=== PATIENT | female | born 1990 | race Caucasian/White ===

== ENCOUNTER 2018-04-20 15:42 | Emergency (ER) | payer BC ==
[~2018-04-20] VITALS: Ht 160 cm; Wt 80.7 kg
[2018-04-20 16:11] LABS: BASOPHILS # (AUTO) 0.1 X10'3 (0-0.2); BASOPHILS % (AUTO) 0.6 % (0-1); EOSINOPHILS # (AUTO) 0.1 X10'3 (0-0.9); EOSINOPHILS % (AUTO) 0.8 % (0-6); HEMOGLOBIN 13.6 g/dl (12.0-16.0); LYMPHOCYTES # (AUTO) 2.4 X10'3 (1.1-4.8); LYMPHOCYTES % (AUTO) 28.4 % (21-51); MEAN CORPUSCULAR HEMOGLOBIN 29.7 PG (27.0-31.0); MEAN CORPUSCULAR HGB CONC 34.1 % (33.0-36.5); MEAN CORPUSCULAR VOLUME 87.2 FL (78-98); MEAN PLATELET VOLUME 6.7 FL (7.4-10.4); MONOCYTES # (AUTO) 0.5 X10'3 (0-0.9); MONOCYTES % (AUTO) 5.9 % (2-12); NEUTROPHILS # (AUTO) 5.4 X10'3 (1.8-7.7); NEUTROPHILS % (AUTO) 64.3 % (42-75); PLATELET COUNT 244 X10'3 (140-440); RED BLOOD COUNT 4.59 X10'6 (4.20-5.60); RED CELL DISTRIBUTION WIDTH 13.1 % (11.5-14.5); WHITE BLOOD COUNT 8.4 X10'3 (4.5-11.0)
[2018-04-20 16:15] LABS: CLARITY,URINE CLEAR (Clear); COLOR,URINE YELLOW (Yellow); GLUCOSE, URINE NEGATIVE (Neg); KETONES,URINE NEGATIVE (Neg); LEUKOCYTE ESTERASE ,URINE NEGATIVE (Neg); NITRITES, URINE NEGATIVE (Neg); OCCULT BLOOD,URINE NEGATIVE (Neg); PROTEIN,URINE NEGATIVE (Neg); UROBILINOGEN,URINE 0.2 E.U/dL (0.2-1.0)
[2018-04-20 16:16] LABS: URINE HCG NEGATIVE (NEG)
[2018-04-20 16:18] LABS: UA COLLECTION TYPE CLN CATCH MIDSTREAM
[2018-04-20 16:25] LABS: ANION GAP 9 (8-16); BILIRUBIN,TOTAL 0.4 MG/DL (0.1-1.0); BLOOD UREA NITROGEN 14 MG/DL (7-18); BUN/CREATININE RATIO 21.9 (6.6-38.0); CALCIUM 8.6 MG/DL (8.5-10.1); CHLORIDE 104 MMOL/L (99-107); CREATININE 0.64 MG/DL (0.40-0.90); GLUCOSE 92 MG/DL (70-104); POTASSIUM 3.8 MMOL/L (3.5-5.1); SODIUM 142 MMOL/L (135-145); TOTAL CARBON DIOXIDE 29.2 MMOL/L (24-32); TOTAL PROTEIN 7.1 G/DL (6.4-8.2); eGFR > 90 ML/MIN
[2018-04-20 16:26] LABS: ALANINE AMINOTRANSFERASE 29 U/L (12-78); ALBUMIN/GLOBULIN RATIO 1.3 (1.1-1.5); ALKALINE PHOSPHATASE 68 IU/L (46-116); ASPARTATE AMINO TRANSFERASE 16 U/L (10-37); LIPASE 131 U/L (73-393)
[2018-04-20 16:38] LABS: PROTHROMBIN TIME 10.2 SECONDS (9.0-12.0)
[2018-04-20 17:40] VITALS: BP 117/76
== END 2018-04-20 17:56 | disposition home or self-care (01) ==
LOC: ER 15:43
DX: R10.11 Right upper quadrant pain (principal); Z98.84 Bariatric surgery status
CPT/HCPCS: 36415; 76700; 80053; 81003; 81025; 83690; 85025; 85610; 99285

== ENCOUNTER 2019-01-08 06:40 | Emergency (ER) | payer OTHER ==
[~2019-01-08] VITALS: Ht 160 cm; Wt 86.4 kg
[2019-01-08 06:43] VITALS: BP 124/78
[2019-01-08] MEDS ORDERED: ketorolac trometh. 30mg/ml inj. IM ONE (07:15)
[2019-01-08] MEDS ORDERED: HYDR-3965 PO (07:16)
[2019-01-08] MEDS ORDERED: CYCL-1 PO (07:16)
== END 2019-01-08 07:48 | disposition home or self-care (01) ==
LOC: ER 06:41
DX: S39.012A Strain of muscle, fascia and tendon of lower back, initial encounter (principal); Z79.899 Other long term (current) drug therapy; X50.1XXA Overexertion from prolonged static or awkward postures, initial encounter; Y93.89 Activity, other specified; Y92.89 Other specified places as the place of occurrence of the external cause; Y99.8 Other external cause status
CPT/HCPCS: 96372; 99283; J1885

== ENCOUNTER 2019-01-22 06:42 | Emergency (ER) | payer OTHER ==
[~2019-01-22] VITALS: Ht 160 cm; Wt 86.0 kg
[~2019-01-22 06:42] MED LIST: CYCL-1 PO; HYDR-3965 PO
[2019-01-22 06:45] VITALS: BP 113/78
[2019-01-22] MEDS ORDERED: PHEN-716 PO (07:00)
[2019-01-22] MEDS ORDERED: CEPH-572 PO (07:00)
[2019-01-22] MEDS ORDERED: FLUC150T PO (07:05)
[2019-01-22 07:06] LABS: CLARITY,URINE CLEAR (Clear); GLUCOSE, URINE 100 mg/dl (Neg); KETONES,URINE NEGATIVE (Neg); LEUKOCYTE ESTERASE ,URINE NEGATIVE (Neg); OCCULT BLOOD,URINE NEGATIVE (Neg); PH,URINE 5.5 (4.8-8.0); PROTEIN,URINE NEGATIVE (Neg)
[2019-01-22 07:07] LABS: URINE HCG NEGATIVE (NEG)
[2019-01-22 07:15] LABS: UA COLLECTION TYPE VOIDED
[2019-01-22 07:16] LABS: COLOR,URINE ORANGE (Yellow)
[2019-01-22 07:18] LABS: BACTERIA,URINE FEW /HPF (Neg); RBC,URINE NONE SEEN /HPF (0-2); SQUAMOUS EPITHELIAL CELL,UR MODERATE /LPF (FEW)
== END 2019-01-22 07:19 | disposition home or self-care (01) ==
LOC: ER 06:43
DX: N39.0 Urinary tract infection, site not specified (principal); R30.0 Dysuria; Z98.84 Bariatric surgery status
CPT/HCPCS: 81001; 81025; 87088; 99283